=== PATIENT | female | born 1960 | race Caucasian/White ===

== ENCOUNTER 2020-07-01 18:10 | Emergency (ER) | payer BC, SELFPAY ==
--- NOTE | 2020-07-01 18:16 | ED.FEMALEGU ---
HPI - Female Genitourinary General Chief complaint: Urogenital-Female Stated complaint: POS UTI Time Seen by Provider: 07/01/20 18:16 Source: patient Mode of arrival: ambulatory Limitations: no limitations History of Present Illness HPI Narrative: 60-year-old female presents to [facility] thinking that she might have a UTI. Patient states her urine has been darker, might of seen blood in it, feels like her bladder is still full after urinating. Denies any burning or urgency. Related Data Home Medications Medication Instructions Recorded Confirmed escitalopram oxalate 10 mg PO DAILY 07/01/20 07/01/20 levothyroxine 175 mcg PO DAILY 07/01/20 07/01/20 spironolactone 50 mg PO DAILY 07/01/20 07/01/20 Allergies Allergy/AdvReac Type Severity Reaction Status Date / Time No Known Allergies Allergy Verified 07/01/20 18:22 Review of Systems Review of Systems: Narrative: CONSTITUTIONAL: Denies fever, chills, or sweats. CARDIOVASCULAR: Denies chest pain, palpitations, or edema. RESPIRATORY: Denies cough or dyspnea. GASTROINTESTINAL: Denies abdominal pain, nausea, vomiting, or diarrhea. GENITOURINARY: Reports dysuria or hematuria. SKIN: Denies rash or itching. MUSCULOSKELETAL: Denies back pain, joint pain, or myalgia. NEUROLOGIC: Denies headache, numbness, or weakness. PSYCHIATRIC: Denies anxiety or depression. All other systems reviewed are negative, except as documented in HPI. [facility] Past Medical History Medical History (Updated 07/01/20 @ 19:54 by Lizzie Bautista) Anxiety High blood pressure Obesity Social History Social History Gender identity (if verbalized by the patient): Female Comments At the time of my signature, I reviewed and agree with the nursing past medical, surgical, social, and family history. There is no relevant family history pertinent to the patient complaint. Exam Narrative: Exam Narrative: GENERAL: This is a well-nourished, well-developed patient, in no apparent distress. Very anxious. Morbidly obese HEAD: normocephalic, atraumatic. EYES: PERRL. Sclera clear/white. Vision is grossly intact. EARS: External ears normal. NOSE: External nose normal with no obvious nasal discharge. THROAT: Mucous membranes moist, posterior pharynx clear. NECK: Neck supple, non-tender without lymphadenopathy, masses or thyromegaly. CARDIOVASCULAR: Tachycardic and rhythm without murmurs, gallops, or rubs. RESPIRATORY: Clear to auscultation. Breath sounds equal bilaterally. No wheezes, rales, or rhonchi. GASTROINTESTINAL: Abdomen soft, non-tender, nondistended. SKIN: warm, intact with no suspicious lesions or rash, good texture and turgor. NEURO: awake, alert, and oriented to person, place and time. There were no obvious focal neurologic abnormalities. EXTREMITIES: No clubbing, cyanosis, or edema. No joint tenderness, effusion, or edema noted. No calf tenderness. Negative Homans sign bilaterally. BACK: Nontender without deformity or crepitance. No flank tenderness. Denies SI HI. Patient verbalizes that she is very anxious. States that her sleep has been interrupted, has not been out of the house due to Covid. Is becoming very anxious and short of breath when wearing the mask, states that she has never worn a mask outside the house since Covid started in July 2019 Course Course Emergency Course: Reviewed with patient the results from the urine. Vital Signs Vital signs: Vital Signs Temperature 98.1 F 07/01/20 18:24 Pulse Rate 117 H 07/01/20 18:24 Respiratory Rate 20 07/01/20 18:24 Blood Pressure 181/105 H 07/01/20 18:24 Pulse Oximetry 96 07/01/20 18:24 Temperature 98.1 F 07/01/20 18:24 Pulse Rate 117 H 07/01/20 18:24 Respiratory Rate 20 07/01/20 18:24 Blood Pressure 140/97 H 07/01/20 18:43 Pulse Oximetry 96 07/01/20 18:24 MDM - Female Genitourinary MDM Narrative Medical decision making narrative: Discharge instructions re
[2020-07-01 18:24] VITALS: BP 181/105; PULSE 117; RESP 20; TEMP 36.7; O2SAT 96
[2020-07-01 18:43] VITALS: BP 140/97
== END 2020-07-01 19:00 | disposition home or self-care (01) ==
PROVIDERS: Emergency Provider Nurse Practitioner; PCP Internal Medicine
DX: R30.0 Dysuria (principal); I10 Essential (primary) hypertension; F41.9 Anxiety disorder, unspecified; E66.9 Obesity, unspecified
CPT/HCPCS: 81003; 99212; G0463

== ENCOUNTER 2023-04-07 08:56 | Emergency (ER) | payer OTHER, SELFPAY ==
[2023-04-07] VITALS (10 sets, daily range): BP systolic 146; BP diastolic 104; PULSE 69–165; RESP 16–56; TEMP 36.4; O2SAT 52–96
--- NOTE | ~2023-04-07 | XR_ITS ---
EXAMINATION: XR abdomen gastric tube insert INDICATION: OG tube placement TECHNIQUE: Portable AP [id number] at 0918 hours COMPARISON: None available FINDINGS: The OG tube is in the stomach. The bowel gas pattern is unremarkable. There are small pleur al effusions. IMPRESSION: 1. A G-tube in the stomach. Reviewed, dictated and finalized at location A. D AND PASTRY BAKER IMPRESSION: 1. A G-tube in the stomach.
--- NOTE | ~2023-04-07 | XR_ITS ---
EXAMINATION: XR chest ET placement INDICATION: Respiratory failure, cardiac arrest TECHNIQUE: Portable AP chest at 0917 hours COMPARISON: None available FINDINGS: The endotracheal tube ends approximately 2.8 cm above the french. The nasogastric tube is i n the stomach. Lung volumes are low. The lungs are free of acute opacities. The cardiomediastinal kirk houette is normal for technique. There are small pleural effusions. IMPRESSION: 1. Endotracheal and nasogastric tubes in adequate position. 2. Small pleural effusions. Reviewed, dictated and finalized at location A. [employer]
[2023-04-07 09:14] LABS: Glucose Point of Care 257 mg/dl (65-105)
--- NOTE | 2023-04-07 09:16 | ED.GENADULT ---
HPI - General Adult General Chief complaint: Syncope Stated complaint: SYNCOPE, ELEVATED HR Time Seen by Provider: 04/07/23 09:13 History of Present Illness HPI narrative: patient is a 62-year-old female who presents ER after calling ambulance after having a syncopal episode. According To the patient has been having episodes of elevated heart rate over last couple weeks when she takes her vital signs at home. She had not been having any lightheadedness or chest pain or any other symptoms. Today after walking in from the garage she leaned over near the table and then collapsed the ground. She was face down and cyanotic. EMS was called. Upon arrival she was waking up in was orientedx3 and speaking. She was reporting that she was short of breath. For EMS patient had a heart rate in the 170s while on route to the ER. Patient received metoprolol 5 mg for her symptoms. Patient did arrive to the ER and was being checked into her room and was speaking to the nurse when she suddenly went unresponsive. Pulse could not be palpated. Code Blue was initiated. Chest compressions initiated. Patient was then intubated. She received multiple rounds of epinephrine. After intubation and x-rays patient began to have bradycardia down into the 20s with loss of pulse. Chest compressions initiated again. Patient received epinephrine but also received IV atropine 1 mg. Patient had Return of spontaneous circulation however was still having bradycardia. She is placed on external pacer at 70 beats per minute with 5 milliamps of electricity being delivered. Related Data Home Medications Medication Instructions Recorded Confirmed escitalopram oxalate 10 mg tablet 10 mg PO DAILY 07/01/20 07/01/20 levothyroxine 175 mcg tablet 175 mcg PO DAILY 07/01/20 07/01/20 spironolactone 50 mg tablet 50 mg PO DAILY 07/01/20 07/01/20 Allergies Allergy/AdvReac Type Severity Reaction Status Date / Time No Known Allergies Allergy Verified 07/01/20 18:22 Review of Systems Review of Systems: ROS unobtainable: Yes unobtainable due to medical condition PMFSH Past Medical History Medical History (Updated 04/07/23 @ 13:13 by Samir Wood MD) Anxiety High blood pressure Hypothyroidism Obesity Surgical History Surgical History (Updated 04/07/23 @ 13:10 by Samir Wood MD) Surgical history unknown Social History Social History Gender identity (if verbalized by the patient): Female Exam Narrative: GENERAL: Unresponsive, morbidly obese HEAD: Normocephalic, atraumatic. EYES: Pupils fixed and dilated . Contusion right supraorbital ridge and upper lid. ENT: Mucous membranes moist. CHEST: no spontaneous respiratory effort, patient's lung sounds clear with bagging. HEART: Initially no pulse. Patient then had Ross with palpable pulse, then subsequently required external pacing with palpable pulse. ABDOMEN: Soft, nondistended, Ventral hernia right lower quadrant.. EXTREMITIES: No deformity of the upper lower extremities. No spontaneous movements. SKIN: Warm, dry, no rash. NEURO: GCS 3. Course Course Emergency Course: Patient with multiple cardiac arrests in the ER. Patient was in VFib and V-tach. She received multiple shocks. She also received amiodarone addition to sodium bicarb and epinephrine for the final 2 codes. Patient need of having PA arrest and was declared is having at 10:59 a.m. Patient's , daughter, brother, and [id number] right the bedside. 1127: Contacted PCP office, ok to send certificate to Dr. Castrejon's office. Vital Signs Vital signs: Vital Signs Temperature 97.6 F 04/07/23 08:55 Pulse Rate 165 H 04/07/23 08:55 Respiratory Rate 25 H 04/07/23 08:55 Pulse Oximetry 90 04/07/23 08:55 Oxygen Delivery Room Air 04/07/23 08:55 Temperature 97.6 F 04/07/23 08:55 Pulse Rate 155 H 04/07/23
--- NOTE | 2023-04-07 09:49 | PC.NURSE ---
08:57 Pt went unresponsive and started agonal breathing. CPR started and code blue announced. 0900 Epi given 09:03 Epi given 09:06 Epi given 09:07 Pulse check, no pulse, Pt intubated with 7 1/2 and 25 at the lip 09:09 Epi given 09:11 BS 257, Pulse 154
--- NOTE | 2023-04-07 09:59 | PC.NURSE ---
0930 Pt HR 36 CPR resumed 09:33 Atropine 1mg given 0936 P64 09:39 pt on External pacer
--- NOTE | 2023-04-07 11:06 | PCRCNOTE ---
Pt has arrested several times between 0900 and 1100. 2 RT's were at bedside at all times assisting the CPR, intubation and bagging pt. Pt was placed on a vent at the time of ROSC was resumed at 0930 with vent settings per Dr. Wood but within a few minutes pt went into arrest again and pt was bagged with 100% O2.
--- NOTE | 2023-04-07 11:08 | PC.NURSE ---
1006 CPR started 1006 1mg of EPI 1009 Pulse check - PEA 1009 1mg of EPI given 1010 Sodium Bicard given 1012 1mg of Epi 1014 P check asystole 1015 1mg of Epi 1018 1 mg of Epi 1020 Pulse v-fib, shock delivered at 200J, CPR resumed 1022 1mg of Epi given 1024 P check -, asystole 1025 1mg of EPi 1028 EPi given 1032 1mg of Epi 1035 Pulse Sinus tach Pt taken to CT scan
--- NOTE | 2023-04-07 11:10 | PCRCNOTE ---
ABG not obtained due to pt arresting and not receiving ROSC again.
--- NOTE | 2023-04-07 11:15 | PC.NURSE ---
1040 Pt Pulse is dropped to 23, CPR started 1043 1mg of Epi given 1046 P check - v-fib, shock given at 200J 1048 1mg of Epi 1051 150 mg Amio given 1053 P check- v-fib, shocked at 200J 1055 Sodium bicarb given 1058 Pulse check - PEA 1059 Pt , dr Wood and family present during the whole time of CPR.
--- NOTE | 2023-04-07 11:20 | PC.NURSE ---
Not able to obtain BP
[2023-04-07 12:15] LABS: Hematocrit 33.3 % (37.0-47.0); Hemoglobin 9.1 g/dL (12.0-15.0); Mean Corpuscular HGB Conc 27.3 g/dl (32-36); Mean Corpuscular Hemoglobin 28.4 pg (26-34); Mean Corpuscular Volume 104.1 fl (80-100); Mean Platelet Volume 10.5 fl (7.4-10.4); Platelet Count Result 199 k/mm3 (150-375); Red Cell Distribution Width 14.5 % (11.5-14.5)
[2023-04-07 12:25] LABS: Prothrombin Time 23.8 Seconds (11.1-14.7)
[2023-04-07 12:26] LABS: Alanine Aminotransferase 88 U/L (6-35); Albumin Level 3.5 g/dL (3.5-5.1); Alkaline Phosphatase 72 U/L (38-126); Anion Gap 24 mmol/L (8-16); Aspartate Amino Transferase 124 U/L (14-36); Bilirubin,Total 0.9 mg/dL (0.2-1.3); Blood Urea Nitrogen 17 mg/dL (7-17); Calcium 9.3 mg/dL (8.4-10.2); Carbon Dioxide 15 mmol/L (22-30); Chloride 103 mmol/L (98-107); Estimated CRCL calculation 50 ml/min; Estimated Glomerular Filt Rate 25; Glucose 346 mg/dL (65-110); Potassium 7.5 mmol/L (3.4-5.0); Sodium 142 mmol/L (137-145)
[2023-04-07 12:27] LABS: Partial Thromboplastin Time 53.6 SECONDS (22.3-36.8)
[2023-04-07 12:33] LABS: NT Pro B Type Natriuretic Pept 3700 pg/mL (19.9-100)
[2023-04-07 12:47] LABS: Eosinophils Absolute Manual 0.22 K/mm3 (0.02-0.5); Eosinophils Percent Manual 2 % (0-4); Lymphocytes Absolute Manual 7.15 K/mm3 (1.1-4.5); Monocytes Absolute Manual 0.44 K/mm3 (0.1-0.90); Monocytes Percent Manual 4 % (3-9); Neutrophils Percent Manual 29 % (46-73); Platelet Estimate Adequate (Adequate); Schistocytes None Seen (NORMAL); Total Cells Counted 100
[2023-04-07 13:13] LABS: Troponin I 0.067 ng/mL (0.000-0.034)
--- NOTE | 2023-04-07 13:30 | PC.NURSE ---
Patient left with [facility] staff. To be transported to home.
== END 2023-04-07 14:37 | disposition expired ==
PROVIDERS: Emergency Provider Emergency Medicine; PCP Internal Medicine
DX: I46.9 Cardiac arrest, cause unspecified (principal); I49.5 Sick sinus syndrome; R55 Syncope and collapse; E03.9 Hypothyroidism, unspecified; I10 Essential (primary) hypertension; E66.9 Obesity, unspecified; Z68.44 Body mass index [BMI] 60.0-69.9, adult; F41.9 Anxiety disorder, unspecified
CPT/HCPCS: 31500; 36415; 80053; 82948; 83735; 83880; 84484; 85025; 85610; 85730; 92950; 96374; 99285; J0171; J0282; J0461